=== PATIENT | female | born 1995 | race Caucasian/White ===

== ENCOUNTER 2018-08-05 06:34 | Outpatient (CLI) | payer OTHER ==
[~2018-08-05 06:34] MED LIST: PRED10TA PO
== END 2018-08-05 23:59 | disposition home or self-care (01) ==
LOC: RAD 06:34
PROVIDERS: ATTEND Obstetrics & Gynecology
DX: Z36.87 Encounter for antenatal screening for uncertain dates (principal); Z3A.08 8 weeks gestation of pregnancy
CPT/HCPCS: 76801

== ENCOUNTER 2018-09-15 07:32 | Outpatient (CLI) | payer OTHER ==
[2018-09-15 09:03] LABS: BASOPHILS % (AUTO) 0.2 % (0-1); EOSINOPHILS # (AUTO) 0.1 X10'3 (0-0.9); EOSINOPHILS % (AUTO) 0.8 % (0-6); HEMATOCRIT 35.4 % (35.0-45.0); HEMOGLOBIN 12.4 g/dl (12.0-16.0); LYMPHOCYTES # (AUTO) 1.9 X10'3 (1.1-4.8); LYMPHOCYTES % (AUTO) 23.9 % (21-51); MEAN CORPUSCULAR HEMOGLOBIN 32.4 PG (27.0-31.0); MEAN CORPUSCULAR HGB CONC 35.1 g/dL (33.0-36.5); MEAN CORPUSCULAR VOLUME 92.3 FL (78-98); MEAN PLATELET VOLUME 7.7 FL (7.4-10.4); MONOCYTES # (AUTO) 0.5 X10'3 (0-0.9); MONOCYTES % (AUTO) 6.6 % (2-12); NEUTROPHILS # (AUTO) 5.4 X10'3 (1.8-7.7); NEUTROPHILS % (AUTO) 68.5 % (42-75); PLATELET COUNT 298 X10'3 (140-440); RED BLOOD COUNT 3.84 X10'6 (4.20-5.60); RED CELL DISTRIBUTION WIDTH 12.8 % (11.5-14.5); WHITE BLOOD COUNT 7.9 X10'3 (4.5-11.0)
[2018-09-15 09:10] LABS: HEMOGLOBIN A1C 5.1 % (4.5-6.2)
[2018-09-15 11:19] LABS: HIV ANTIBODY 1&2 RAPID NON-REACTIVE (Neg)
[2018-09-16 07:13] LABS: RPR Non Reactive (Non Reactive)
[2018-09-16 08:34] LABS: HBSAG SCREEN Negative (Negative); RUBELLA ANTIBODIES, IGG 2.82 index (Immune >0.99); THIIODOTHRONINE, FREE, SERUM 3.4 pg/mL (2.0-4.4)
== END 2018-09-15 23:59 | disposition home or self-care (01) ==
LOC: LAB 07:32
PROVIDERS: ATTEND Obstetrics & Gynecology
DX: Z34.91 Encounter for supervision of normal pregnancy, unspecified, first trimester (principal); Z3A.13 13 weeks gestation of pregnancy
CPT/HCPCS: 36415; 83036; 84439; 84443; 84481; 85025; 86592; 86703; 86762; 86900; 86901; 87088; 87340

== ENCOUNTER 2018-12-17 06:32 | Outpatient (CLI) | payer OTHER ==
[2018-12-17 07:21] LABS: BASOPHILS % (AUTO) 0.3 % (0-1); EOSINOPHILS # (AUTO) 0.1 X10'3 (0-0.9); HEMATOCRIT 36.5 % (35.0-45.0); HEMOGLOBIN 12.7 g/dl (12.0-16.0); LYMPHOCYTES % (AUTO) 22.4 % (21-51); MEAN CORPUSCULAR HEMOGLOBIN 32.3 PG (27.0-31.0); MEAN CORPUSCULAR HGB CONC 34.9 g/dL (33.0-36.5); MEAN CORPUSCULAR VOLUME 92.4 FL (78-98); MEAN PLATELET VOLUME 7.6 FL (7.4-10.4); MONOCYTES # (AUTO) 0.6 X10'3 (0-0.9); MONOCYTES % (AUTO) 7.2 % (2-12); NEUTROPHILS % (AUTO) 69.1 % (42-75); PLATELET COUNT 314 X10'3 (140-440); RED BLOOD COUNT 3.95 X10'6 (4.20-5.60); RED CELL DISTRIBUTION WIDTH 12.7 % (11.5-14.5); WHITE BLOOD COUNT 8.7 X10'3 (4.5-11.0)
[2018-12-17 07:23] LABS: GLUCOSE,FASTING GESTATIONAL 82 MG/DL (51-92)
== END 2018-12-17 23:59 | disposition home or self-care (01) ==
LOC: LAB 06:32
PROVIDERS: ATTEND Obstetrics & Gynecology
DX: Z34.82 Encounter for supervision of other normal pregnancy, second trimester (principal); Z3A.27 27 weeks gestation of pregnancy
CPT/HCPCS: 36415; 84439; 84443; 84481; 85025; 86885; 86900; 86901

== ENCOUNTER 2019-02-25 11:01 | Outpatient (CLI) | payer OTHER | END 2019-02-25 23:59 | disposition home or self-care (01) | LOC: LAB 11:01 | PROVIDERS: ATTEND Physician Assistant | DX: E04.1 Nontoxic single thyroid nodule (principal) | CPT/HCPCS: 36415; 84439; 84443; 84481 ==

== ENCOUNTER 2019-10-29 08:09 | Outpatient (CLI) | payer OTHER | END 2019-10-29 23:59 | disposition home or self-care (01) | LOC: LAB 08:09 | PROVIDERS: ATTEND Family Medicine | DX: E04.1 Nontoxic single thyroid nodule (principal); Z88.1 Allergy status to other antibiotic agents; Z88.2 Allergy status to sulfonamides | CPT/HCPCS: 36415; 84439; 84443 ==

== ENCOUNTER 2020-02-22 06:59 | Day surgery (SDC) | payer BC, OTHER ==
[~2020-02-22] VITALS: Ht 165.1 cm; Wt 61.0 kg
[2020-02-22 08:00] VITALS: BP 114/55
[2020-02-22 08:55] VITALS: BP 119/57
[2020-02-22 09:15] VITALS: BP 125/72
[2020-02-22 09:22] VITALS: BP 114/65
== END 2020-02-22 09:35 | disposition home or self-care (01) ==
LOC: SSTAY O 06:59
PROVIDERS: ATTEND Radiology Diagnostic Radiology
DX: E04.1 Nontoxic single thyroid nodule (principal); Z88.1 Allergy status to other antibiotic agents; Z79.899 Other long term (current) drug therapy
CPT/HCPCS: 10005; 60100; 76942

== ENCOUNTER 2020-03-01 07:43 | Outpatient (CLI) | payer BC ==
[2020-03-01 09:50] LABS: BASOPHILS % (AUTO) 0.2 % (0-1); EOSINOPHILS % (AUTO) 0.5 % (0-6); HEMATOCRIT 39.8 % (35.0-45.0); HEMOGLOBIN 13.4 g/dl (12.0-16.0); LYMPHOCYTES # (AUTO) 1.9 X10'3 (1.1-4.8); LYMPHOCYTES % (AUTO) 25.4 % (21-51); MEAN CORPUSCULAR HEMOGLOBIN 30.7 PG (27.0-31.0); MEAN CORPUSCULAR HGB CONC 33.7 g/dL (33.0-36.5); MEAN CORPUSCULAR VOLUME 91.1 FL (78-98); MONOCYTES # (AUTO) 0.4 X10'3 (0-0.9); MONOCYTES % (AUTO) 5.4 % (2-12); NEUTROPHILS % (AUTO) 68.5 % (42-75); PLATELET COUNT 332 X10'3 (140-440); RED BLOOD COUNT 4.36 X10'6 (4.20-5.60); RED CELL DISTRIBUTION WIDTH 13.5 % (11.5-14.5); WHITE BLOOD COUNT 7.3 X10'3 (4.5-11.0)
[2020-03-01 12:14] LABS: HIV ANTIBODY 1&2 RAPID NON-REACTIVE (Neg)
[2020-03-02 13:18] LABS: HBSAG SCREEN Negative (Negative); HEPATITIS C ANTIBODY <0.1 s/co ratio (0.0-0.9)
== END 2020-03-01 23:59 | disposition home or self-care (01) ==
LOC: LAB 07:43
PROVIDERS: ATTEND Specialist
DX: Z34.90 Encounter for supervision of normal pregnancy, unspecified, unspecified trimester (principal); R35.0 Frequency of micturition; Z3A.00 Weeks of gestation of pregnancy not specified
CPT/HCPCS: 36415; 85025; 86592; 86703; 86762; 86803; 86885; 86900; 86901; 87088; 87340; 87491

== ENCOUNTER 2020-06-09 07:44 | Outpatient (CLI) | payer BC ==
[2020-06-09 08:15] LABS: BASOPHILS % (AUTO) 0.3 % (0-1); EOSINOPHILS # (AUTO) 0.1 X10'3 (0-0.9); EOSINOPHILS % (AUTO) 0.6 % (0-6); HEMATOCRIT 36.3 % (35.0-45.0); HEMOGLOBIN 12.5 g/dl (12.0-16.0); LYMPHOCYTES # (AUTO) 1.8 X10'3 (1.1-4.8); LYMPHOCYTES % (AUTO) 19.7 % (21-51); MEAN CORPUSCULAR HEMOGLOBIN 32.2 PG (27.0-31.0); MEAN CORPUSCULAR HGB CONC 34.5 g/dL (33.0-36.5); MEAN CORPUSCULAR VOLUME 93.5 FL (78-98); MEAN PLATELET VOLUME 7.9 FL (7.4-10.4); MONOCYTES # (AUTO) 0.5 X10'3 (0-0.9); MONOCYTES % (AUTO) 5.4 % (2-12); NEUTROPHILS # (AUTO) 6.6 X10'3 (1.8-7.7); PLATELET COUNT 302 X10'3 (140-440); RED BLOOD COUNT 3.88 X10'6 (4.20-5.60); RED CELL DISTRIBUTION WIDTH 12.8 % (11.5-14.5); WHITE BLOOD COUNT 8.9 X10'3 (4.5-11.0)
== END 2020-06-09 23:59 | disposition home or self-care (01) ==
LOC: LAB 07:44 → EEVIPCON 07:44 → LAB 23:59
PROVIDERS: ATTEND Specialist
DX: O24.419 Gestational diabetes mellitus in pregnancy, unspecified control (principal); Z3A.00 Weeks of gestation of pregnancy not specified
CPT/HCPCS: 36415; 82947; 82950; 85025

== ENCOUNTER 2020-07-08 07:29 | Emergency (ER) | payer BC ==
[~2020-07-08] VITALS: Ht 165.1 cm; Wt 65.9 kg
[2020-07-08 08:44] VITALS: BP 104/65
--- NOTE | 2020-07-08 08:53 | NUR ---
Called report to LIZA Ricketts at [facility].
== END 2020-07-08 09:13 | disposition short-term general hospital (02) ==
LOC: ER 07:30
DX: O36.8130 Decreased fetal movements, third trimester, not applicable or unspecified (principal); O41.03X0 Oligohydramnios, third trimester, not applicable or unspecified; Z88.8 Allergy status to other drugs, medicaments and biological substances; Z79.899 Other long term (current) drug therapy; Z86.14 Personal history of Methicillin resistant Staphylococcus aureus infection; Z72.89 Other problems related to lifestyle; Z3A.29 29 weeks gestation of pregnancy; Z37.9 Outcome of delivery, unspecified
CPT/HCPCS: 76805; 76857; 99285

== ENCOUNTER 2020-11-28 07:21 | Emergency (ER) | payer BC ==
[~2020-11-28] VITALS: Ht 165.1 cm; Wt 59.5 kg
[2020-11-28] MEDS ORDERED: normal saline 1000ml 1,000 ML IV ONE (08:50)
[2020-11-28 08:59] LABS: BASOPHILS % (AUTO) 0.3 % (0-1); EOSINOPHILS % (AUTO) 0.1 % (0-6); HEMOGLOBIN 14.1 g/dl (12.0-16.0); LYMPHOCYTES % (AUTO) 12.3 % (21-51); MEAN CORPUSCULAR HEMOGLOBIN 29.3 PG (27.0-31.0); MEAN CORPUSCULAR HGB CONC 33.6 g/dL (33.0-36.5); MEAN CORPUSCULAR VOLUME 87.2 FL (78-98); MEAN PLATELET VOLUME 8.4 FL (7.4-10.4); MONOCYTES # (AUTO) 0.6 X10'3 (0-0.9); MONOCYTES % (AUTO) 7.8 % (2-12); NEUTROPHILS # (AUTO) 6.4 X10'3 (1.8-7.7); NEUTROPHILS % (AUTO) 79.5 % (42-75); PLATELET COUNT 319 X10'3 (140-440); RED BLOOD COUNT 4.81 X10'6 (4.20-5.60); RED CELL DISTRIBUTION WIDTH 14.1 % (11.5-14.5)
[2020-11-28 09:03] LABS: ALBUMIN 3.9 G/DL (3.4-5.0); ANION GAP 11 (8-16); BLOOD UREA NITROGEN 7 MG/DL (7-18); BUN/CREATININE RATIO 7.7 (6.6-38.0); CALCIUM 8.8 MG/DL (8.5-10.1); CHLORIDE 100 MMOL/L (99-107); CREATININE 0.91 MG/DL (0.40-0.90); GLUCOSE 109 MG/DL (70-104); POTASSIUM 3.7 MMOL/L (3.5-5.1); SODIUM 136 MMOL/L (135-145); TOTAL CARBON DIOXIDE 25.3 MMOL/L (24-32); eGFR 74 ML/MIN
[2020-11-28 10:40] LABS: C DIFF ANTIGEN NEGATIVE (NEGATIVE); C DIFF SPECIMEN=DIARRHEA? ACCEPTABLE; C DIFFICILE TOXINS A&B NEGATIVE (Neg)
[2020-11-28 10:48] VITALS: BP 104/68
== END 2020-11-28 10:49 | disposition home or self-care (01) ==
LOC: EEVIPCON 07:21 → ER 07:21
DX: R19.7 Diarrhea, unspecified (principal); R11.0 Nausea; R10.84 Generalized abdominal pain; E86.0 Dehydration; Z86.14 Personal history of Methicillin resistant Staphylococcus aureus infection; Z98.890 Other specified postprocedural states; Z72.89 Other problems related to lifestyle; Z88.1 Allergy status to other antibiotic agents; Z79.899 Other long term (current) drug therapy
CPT/HCPCS: 36415; 80048; 85025; 87324; 87449; 96360; 96361; 99283; J7030

== ENCOUNTER 2021-07-06 09:35 | Emergency (ER) | payer BC, OTHER ==
[~2021-07-06] VITALS: Ht 165.1 cm; Wt 52.3 kg
[2021-07-06] MEDS ORDERED: proCHLORperazine 10 MG/2 ml inj IV ONE (09:55)
[2021-07-06] MEDS ORDERED: normal saline 1000ML IV soln IVB ONE (09:55)
[2021-07-06] MEDS ORDERED: iohexol 300mg/ml 100ml inj. ONE (10:21)
[2021-07-06 10:28] LABS: BASOPHILS % (AUTO) 0.1 % (0-1); EOSINOPHILS % (AUTO) 0 % (0-6); HEMOGLOBIN 15.1 g/dl (12.0-16.0); LYMPHOCYTES # (AUTO) 0.3 X10'3 (1.1-4.8); LYMPHOCYTES % (AUTO) 3.8 % (21-51); MEAN CORPUSCULAR HEMOGLOBIN 30.4 PG (27.0-31.0); MEAN CORPUSCULAR HGB CONC 33.7 g/dL (33.0-36.5); MEAN CORPUSCULAR VOLUME 90.4 FL (78-98); MEAN PLATELET VOLUME 8.1 FL (7.4-10.4); MONOCYTES # (AUTO) 0.4 X10'3 (0-0.9); MONOCYTES % (AUTO) 5.1 % (2-12); NEUTROPHILS # (AUTO) 7.4 X10'3 (1.8-7.7); PLATELET COUNT 292 X10'3 (140-440); RED BLOOD COUNT 4.98 X10'6 (4.20-5.60); RED CELL DISTRIBUTION WIDTH 13.7 % (11.5-14.5); WHITE BLOOD COUNT 8.1 X10'3 (4.5-11.0)
[2021-07-06 10:42] LABS: CLARITY,URINE CLEAR (Clear); COLOR,URINE YELLOW (Yellow); GLUCOSE, URINE NEGATIVE (Neg); KETONES,URINE >=80 mg/dl (Neg); LEUKOCYTE ESTERASE ,URINE NEGATIVE (Neg); NITRITES, URINE NEGATIVE (Neg); OCCULT BLOOD,URINE NEGATIVE (Neg); PROTEIN,URINE NEGATIVE (Neg); UROBILINOGEN,URINE 0.2 E.U/dL (0.2-1.0)
[2021-07-06 10:43] LABS: URINE HCG NEGATIVE (NEG)
[2021-07-06 10:43] LABS: ALANINE AMINOTRANSFERASE 25 U/L (12-78); ALBUMIN 4.3 G/DL (3.4-5.0); ALKALINE PHOSPHATASE 93 IU/L (46-116); ANION GAP 13 (8-16); ASPARTATE AMINO TRANSFERASE 18 U/L (10-37); BILIRUBIN,TOTAL 0.7 MG/DL (0.1-1.0); BLOOD UREA NITROGEN 16 MG/DL (7-18); BUN/CREATININE RATIO 17.2 (6.6-38.0); CALCIUM 9.1 MG/DL (8.5-10.1); CHLORIDE 101 MMOL/L (99-107); CREATININE 0.93 MG/DL (0.40-0.90); GLUCOSE 111 MG/DL (70-104); LIPASE < 50 U/L (73-393); POTASSIUM 4.6 MMOL/L (3.5-5.1); SODIUM 138 MMOL/L (135-145); TOTAL CARBON DIOXIDE 24.4 MMOL/L (24-32); TOTAL PROTEIN 8.4 G/DL (6.4-8.2); eGFR 72 ML/MIN
[2021-07-06 10:48] LABS: UA COLLECTION TYPE NON-SPECIFIED
--- NOTE | 2021-07-06 11:16 | NUR ---
Pt back from [place].
[2021-07-06] MEDS ORDERED: ONDA-103 PO (12:07)
[2021-07-06 12:30] VITALS: BP 111/60
== END 2021-07-06 12:32 | disposition home or self-care (01) ==
LOC: EEVIPCON 09:36 → ER 09:36
DX: R11.2 Nausea with vomiting, unspecified (principal); R19.7 Diarrhea, unspecified; R10.9 Unspecified abdominal pain; Z88.1 Allergy status to other antibiotic agents
CPT/HCPCS: 36415; 74177; 80053; 81003; 81025; 83605; 83690; 84145; 85025; 96361; 96374; 99284; J0780; J7030; Q9967

== ENCOUNTER 2021-07-13 14:26 | Outpatient (CLI) | payer BC ==
[~2021-07-13 14:26] MED LIST changes: +ONDA-103 PO
== END 2021-07-13 23:59 | disposition home or self-care (01) ==
LOC: LAB 14:26
PROVIDERS: ATTEND Family Medicine
DX: E04.1 Nontoxic single thyroid nodule (principal); R10.9 Unspecified abdominal pain
CPT/HCPCS: 36415; 84439; 84443; 84481

== ENCOUNTER 2022-03-15 12:15 | Outpatient (CLI) | payer BC | END 2022-03-15 23:59 | disposition home or self-care (01) | LOC: RAD 12:15 | PROVIDERS: ATTEND Family Medicine | DX: E04.2 Nontoxic multinodular goiter (principal) | CPT/HCPCS: 36415; 84439; 84443 ==

== ENCOUNTER 2022-05-15 10:10 | Emergency (ER) | payer BC ==
[~2022-05-15] VITALS: Ht 165.1 cm; Wt 56.8 kg
[2022-05-15 10:31] VITALS: BP 106/69
[2022-05-15] MEDS ORDERED: LIDOcaine 1% 30ml preserv. free vial IJ ONE (10:55)
[2022-05-15] MEDS ORDERED: triamcinolone acetonide 40mg/ml inj IM ONE (10:55)
[2022-05-15] MEDS ORDERED: ORPH100T2 PO (10:59)
== END 2022-05-15 11:11 | disposition home or self-care (01) ==
LOC: ER 10:10
DX: M62.838 Other muscle spasm (principal); Z98.890 Other specified postprocedural states; Z72.89 Other problems related to lifestyle; Z88.1 Allergy status to other antibiotic agents; Z79.899 Other long term (current) drug therapy
CPT/HCPCS: 20553; 99284

== ENCOUNTER 2022-05-31 16:11 | Emergency (ER) | payer BC ==
[~2022-05-31] VITALS: Ht 165.1 cm; Wt 55.0 kg
[~2022-05-31 16:11] MED LIST changes: +ORPH100T2 PO
[2022-05-31 16:20] VITALS: BP 114/78
[2022-05-31] MEDS ORDERED: dexamethasone sod phosphate 10mg/ml inj IM STA (16:39)
[2022-05-31] MEDS ORDERED: LIDOcaine 5% patch TP STA (16:39)
[2022-05-31] MEDS ORDERED: DEC4T PO (17:17)
== END 2022-05-31 17:30 | disposition home or self-care (01) ==
LOC: ER 16:12
DX: M62.89 Other specified disorders of muscle (principal); Z88.1 Allergy status to other antibiotic agents; Z87.19 Personal history of other diseases of the digestive system; Z98.890 Other specified postprocedural states; Z79.899 Other long term (current) drug therapy
CPT/HCPCS: 96372; 99283; J1100

== ENCOUNTER 2022-07-26 09:17 | Outpatient (CLI) | payer BC ==
[~2022-07-26 09:17] MED LIST changes: +DEC4T PO
[2022-07-27 09:09] LABS: TRIIODOTHYRONINE (T3) 95 ng/dL (71-180)
== END 2022-07-26 23:59 | disposition home or self-care (01) ==
LOC: LAB 09:17
PROVIDERS: ATTEND Internal Medicine Endocrinology, Diabetes & Metabolism
DX: E04.1 Nontoxic single thyroid nodule (principal)
CPT/HCPCS: 36415; 84439; 84443; 84480

== ENCOUNTER 2022-12-04 06:25 | Emergency (ER) | payer BC ==
[~2022-12-04] VITALS: Ht 165.1 cm; Wt 46.0 kg
[~2022-12-04 06:25] MED LIST changes: -ORPH100T2 PO; +ORPH100T4 PO
[2022-12-04 06:30] VITALS: BP 101/72
[2022-12-04] MEDS ORDERED: OFLO5DRO LEFTEYE (07:05)
[2022-12-04] MEDS ORDERED: ofloxacin 0.33% 5ml ophthalmic drops LEFTEYE SCH (08:00)
== END 2022-12-04 07:18 | disposition home or self-care (01) ==
LOC: ER 06:26
DX: H10.89 Other conjunctivitis (principal); Z86.14 Personal history of Methicillin resistant Staphylococcus aureus infection; Z98.890 Other specified postprocedural states; Z88.2 Allergy status to sulfonamides; Z88.1 Allergy status to other antibiotic agents; Z79.899 Other long term (current) drug therapy
CPT/HCPCS: 99283

== ENCOUNTER 2023-04-04 14:38 | Outpatient (CLI) | payer BC ==
[2023-04-04 15:49] LABS: BASOPHILS % (AUTO) 0.2 % (0-1); EOSINOPHILS # (AUTO) 0.1 X10'3 (0-0.9); EOSINOPHILS % (AUTO) 1.3 % (0-6); HEMATOCRIT 37.3 % (35.0-45.0); HEMOGLOBIN 12.8 g/dl (12.0-16.0); LYMPHOCYTES # (AUTO) 2.4 X10'3 (1.1-4.8); MEAN CORPUSCULAR HEMOGLOBIN 31.4 PG (27.0-31.0); MEAN CORPUSCULAR HGB CONC 34.2 g/dL (33.0-36.5); MEAN CORPUSCULAR VOLUME 91.9 FL (78-98); MEAN PLATELET VOLUME 7.7 FL (7.4-10.4); MONOCYTES # (AUTO) 0.6 X10'3 (0-0.9); MONOCYTES % (AUTO) 6.9 % (2-12); NEUTROPHILS # (AUTO) 5.2 X10'3 (1.8-7.7); NEUTROPHILS % (AUTO) 62.6 % (42-75); PLATELET COUNT 288 X10'3 (140-440); RED BLOOD COUNT 4.06 X10'6 (4.20-5.60); RED CELL DISTRIBUTION WIDTH 13.1 % (11.5-14.5); WHITE BLOOD COUNT 8.4 X10'3 (4.5-11.0)
[2023-04-04 16:25] LABS: THYROID STIMULATING HORMONE 1.61 ulU/ml (0.34-4.50)
[2023-04-04 16:31] LABS: HEMOGLOBIN A1C 4.9 % (4.5-6.2)
[2023-04-04 16:43] LABS: HIV ANTIBODY 1&2 RAPID NON-REACTIVE (Neg)
[2023-04-08 09:33] LABS: HBSAG SCREEN Negative (Negative); HEPATITIS C VIRUS ANTIBODY Non Reactive (Non Reactive); RUBELLA ANTIBODIES, IGG 2.15 index (Immune >0.99)
[2023-04-08 16:10] LABS: VARICELLA-ZOSTER VIRUS AB, IGG <135 index (Immune >165)
== END 2023-04-04 23:59 | disposition home or self-care (01) ==
LOC: LAB 14:38
PROVIDERS: ATTEND Obstetrics & Gynecology
DX: Z34.81 Encounter for supervision of other normal pregnancy, first trimester (principal)
CPT/HCPCS: 36415; 83036; 84443; 85025; 86592; 86703; 86762; 86803; 86885; 86900; 86901; 87088; 87340; 87522

== ENCOUNTER 2023-07-30 14:30 | Outpatient (CLI) | payer BC ==
[2023-07-30 14:58] LABS: BASOPHILS % (AUTO) 0.2 % (0-1); EOSINOPHILS # (AUTO) 0.1 X10'3 (0-0.9); EOSINOPHILS % (AUTO) 1.2 % (0-6); HEMATOCRIT 36.4 % (35.0-45.0); HEMOGLOBIN 12.2 g/dl (12.0-16.0); LYMPHOCYTES # (AUTO) 1.6 X10'3 (1.1-4.8); MEAN CORPUSCULAR HEMOGLOBIN 31.5 PG (27.0-31.0); MEAN CORPUSCULAR HGB CONC 33.5 g/dL (33.0-36.5); MEAN PLATELET VOLUME 7.9 FL (7.4-10.4); MONOCYTES # (AUTO) 0.5 X10'3 (0-0.9); MONOCYTES % (AUTO) 6.9 % (2-12); NEUTROPHILS # (AUTO) 4.8 X10'3 (1.8-7.7); NEUTROPHILS % (AUTO) 68.7 % (42-75); PLATELET COUNT 255 X10'3 (140-440); RED BLOOD COUNT 3.87 X10'6 (4.20-5.60)
== END 2023-07-30 23:59 | disposition home or self-care (01) ==
LOC: LAB 14:30
PROVIDERS: ATTEND Obstetrics & Gynecology
DX: Z34.83 Encounter for supervision of other normal pregnancy, third trimester (principal)
CPT/HCPCS: 36415; 85025; 86592

== ENCOUNTER 2023-08-06 07:18 | Outpatient (CLI) | payer BC ==
[2023-08-06 08:49] LABS: GESTATIONAL GLU TOL INTERP SEE INTERP; GLUCOSE,FASTING GESTATIONAL 82 MG/DL (51-92)
== END 2023-08-06 23:59 | disposition home or self-care (01) ==
LOC: LAB 07:18
PROVIDERS: ATTEND Obstetrics & Gynecology
DX: Z34.83 Encounter for supervision of other normal pregnancy, third trimester (principal)
CPT/HCPCS: 36415; 82951; 82952